=== PATIENT | female | born 1965 | race Caucasian/White ===

== ENCOUNTER → 2016-06-30 | Outpatient (CLI) | payer OTHER ==
--- NOTE | 2016-07-01 12:32 | MAMMOGRAPHY REPORT ---
BILATERAL DIGITAL SCREENING MAMMOGRAM TOMOSYNTHESIS WITH CAD: 06/30/2016 CLINICAL HISTORY: Routine screening. Patient has no complaints. TECHNIQUE: Breast tomosynthesis in addition to standard 2D mammography was performed. Current study was also evaluated with a Computer Aided Detection (CAD) system. COMPARISON: Comparison is made to exams dated: 06/13/2015 mammogram, 04/10/2012 mammogram, 05/31/2014 m ammogram, 07/07/2009 ultrasound, and 07/07/2009 mammogram - [facility]. BREAST COMPOSITION: The tissue of both breasts is heterogeneously dense, which may obscure small ma sses. FINDINGS: No suspicious masses, calcifications, or areas of architectural distortion are noted in e ither breast. There has been no significant interval change compared to prior exams. Bilateral ria gn-appearing calcifications are again noted. Fluctuating benign-appearing left breast masses are ag ain noted, and likely represent cysts. IMPRESSION: ACR BI-RADS CATEGORY 2: BENIGN There is no mammographic evidence of malignancy. A 1 year screening mammogram is recommended. The p atient will receive written notification of the results. Approximately 10% of breast cancers are not detected with mammography. A negative mammographic repor t should not delay biopsy if a clinically suggestive mass is present. Lottie Chin M.D. ah/:06/30/2016 17:07:17 Territory Service Representative: Mejia PYLE(R)(M), [facility] letter sent: Normal 1/2 BI-RADS Code: ACR BI-RADS Category 2: Benign
== END | disposition home or self-care (01) ==
LOC: C.MAMM 12:19
PROVIDERS: ATTEND Family Medicine
DX: Z12.31 Encounter for screening mammogram for malignant neoplasm of breast (principal)

== ENCOUNTER → 2016-08-24 | Outpatient (CLI) | payer OTHER ==
[2016-08-24 14:38] LABS: HEMATOCRIT 40.4 % (37-47); MEAN CORPUSCULAR HEMOGLOBIN 30.1 pg (25-34); MEAN CORPUSCULAR HGB CONC 32.7 g/dl (32-36); PLATELET COUNT 242 K/uL (130-400); RED BLOOD COUNT 4.39 M/uL (4.2-5.4)
[2016-08-24 15:44] LABS: BLOOD UREA NITROGEN 8 mg/dl (7-18); CALCIUM 8.5 mg/dl (8.5-10.1); CARBON DIOXIDE 30 mmol/L (21-32); CHLORIDE 105 mmol/L (98-107); CREATININE 0.63 mg/dl (0.60-1.20); GLUCOSE 97 mg/dl (70-99); POTASSIUM 4.2 mmol/L (3.5-5.1); SODIUM 140 mmol/L (136-145)
[2016-08-24 15:49] LABS: ALB/GLOB RATIO 1.1 (0.9-2); ALKALINE PHOSPHATASE 91 U/L (45-117); ALT/SGPT 31 U/L (12-78); AST/SGOT 17 U/L (15-37)
== END | disposition home or self-care (01) ==
LOC: C.LAB 13:08
PROVIDERS: ATTEND Plastic Surgery
DX: Z01.812 Encounter for preprocedural laboratory examination (principal); Z01.810 Encounter for preprocedural cardiovascular examination

== ENCOUNTER → 2017-05-20 | Outpatient (CLI) | payer OTHER ==
--- NOTE | 2017-05-20 13:08 | DIAGNOSTIC IMAGING REPORT ---
SACRUM COCCYX 4 VIEWS CLINICAL HISTORY: LOW BACK PAIN COMPARISON STUDY: No previous studies for comparison. FINDINGS: No fractures are visualized. No destructive lesions are evident. There is no SI joint diastases. No symphysis diastases. There are no findings to indicate an inflammatory sacroiliitis. There are nonspecific pelvic basin calcifications. There is 4.5 mm calcification inferior to the left L5 transverse process. IMPRESSION: 1. No significant bony abnormalities identified 2. Nonspecific 4.5 mm calcification inferior to the left L5 transverse process. There are also nonspecific left pelvic basin calcifications. If there is clinical concern over the presence of a ureteral calculus, a noncontrast CT scan could always be obtained in follow-up. Electronically signed by: Justyn Jacobo M.D. 05/20/2017 1:07 PM Dictated Date/Time: 05/20/2017 1:05 PM
--- NOTE | 2017-05-20 13:09 | DIAGNOSTIC IMAGING REPORT ---
L-SPINE FLEX/EXT BENDING MIN 6 CLINICAL HISTORY: LOW BACK PAIN COMPARISON STUDY: No previous studies for comparison. FINDINGS: There is mild fecal retention. There is no pathologic bowel dilatation. No lumbar fractures or subluxations are visualized. There is no instability on flexion or extension. IMPRESSION: 1. Mild multilevel degenerative change 2. No fractures or subluxations identified 3. No evidence of instability on flexion or extension Electronically signed by: Justyn Jacobo M.D. 05/20/2017 1:08 PM Dictated Date/Time: 05/20/2017 1:07 PM
== END | disposition home or self-care (01) ==
LOC: C.RAD 11:55
PROVIDERS: ATTEND Nurse Practitioner Family
DX: M54.5 Low back pain (principal); M54.16 Radiculopathy, lumbar region

== ENCOUNTER → 2017-08-18 | Outpatient (CLI) | payer OTHER ==
--- NOTE | 2017-08-19 07:46 | MAMMOGRAPHY REPORT ---
BILATERAL DIGITAL SCREENING MAMMOGRAM TOMOSYNTHESIS WITH CAD: 08/18/2017 CLINICAL HISTORY: Routine screening. Patient has no complaints. TECHNIQUE: Breast tomosynthesis in addition to standard 2D mammography was performed. Current study was also evaluated with a Computer Aided Detection (CAD) system. COMPARISON: Comparison is made to exams dated: 06/30/2016 mammogram, 06/13/2015 mammogram, 05/31/2014 ma mmogram, 04/26/2012 mammogram, 04/10/2012 mammogram, and 07/03/2009 mammogram - [facility]. BREAST COMPOSITION: The tissue of both breasts is heterogeneously dense, which may obscure small mas ses. FINDINGS: No suspicious masses, calcifications, or areas of architectural distortion are noted in ei ther breast. Bilateral benign-appearing calcifications are again noted. Fluctuating benign-appearin g left breast masses are again noted, and likely represent cysts. There are new subpectoral silicone implants bilaterally. IMPRESSION: ACR BI-RADS CATEGORY 2: BENIGN There is no mammographic evidence of malignancy. A 1 year screening mammogram is recommended. The pa tient will receive written notification of the results. Approximately 10% of breast cancers are not detected with mammography. A negative mammographic report should not delay biopsy if a clinically suggestive mass is present. Lottie Chin M.D. /:08/18/2017 15:29:46 Frame Nailer: Gwendolyn PYLE(Ana Rosa)(M), [facility] letter sent: Normal 1/2 BI-RADS Code: ACR BI-RADS Category 2: Benign
== END | disposition home or self-care (01) ==
LOC: C.MAMM 14:45
PROVIDERS: ATTEND Family Medicine
DX: Z12.31 Encounter for screening mammogram for malignant neoplasm of breast (principal); Z98.82 Breast implant status